=== PATIENT | female | born 1940 | race Caucasian/White ===

== ENCOUNTER 2022-04-12 09:34 | Inpatient (IN) ==
[2022-04-12] MEDS ORDERED: ONDANSETRON 4 MG/2 ML VIAL IV PRN ×2 (09:52→11:47)
[2022-04-12] MEDS: LACTATED RINGERS 1,000 ML IV SCH ×3 (10:15→17:00)
[2022-04-12] MEDS ORDERED: propofoL 200 MG/20 ML VIAL IV ONE ×2 (10:40→12:08)
[2022-04-12] MEDS ORDERED: LIDOCAINE 2% 5 ML VIAL ONE ×2 (10:40→12:08)
[2022-04-12] MEDS ORDERED: ONDANSETRON 4 MG/2 ML VIAL ONE (11:02)
[2022-04-12] MEDS ORDERED: CLINDAMYCIN INJ 600 MG/50 ML PREMIX IV ONE ×2 (11:18→11:30)
[2022-04-12] MEDS ORDERED: ALBUTEROL/IPRATROPIUM 3 ML NEB RESP TX STA (11:29)
[2022-04-12] MEDS ORDERED: ERTAPENEM 1,000 MG in SODIUM CHLORIDE 0.9% 100 ML IV ONE (11:31)
[2022-04-12] MEDS ORDERED: ALBUTEROL/IPRATROPIUM 3 ML NEB RESP TX PRN (11:47)
[2022-04-12] MEDS ORDERED: PROMETHAZINE 25 MG/1 ML VIAL IM PRN (11:47)
[2022-04-12] MEDS ORDERED: HYDROmorphone 1 MG/1 ML SYRINGE IV PRN (11:47)
[2022-04-12] MEDS ORDERED: ACETAMINOPHEN 325 MG TABLET PO PRN (11:47)
[2022-04-12] MEDS ORDERED: SODIUM CHLORIDE 0.9% IV SCH (12:00)
[2022-04-12] MEDS ORDERED: SUCCINYLCHOLINE 200 MG/10 ML VIAL ONE (12:08)
[2022-04-12] MEDS ORDERED: ROCURONIUM 50 MG/5 ML VIAL IV ONE ×3 (12:09→15:17)
[2022-04-12] MEDS ORDERED: MIDAZOLAM 2 MG/2 ML VIAL ONE ×3 (12:11→15:18)
[2022-04-12] MEDS ORDERED: propofoL 200 MG/20 ML VIAL IV PRN (12:40)
[2022-04-12] MEDS ORDERED: ALBUMIN 5% 12.5 GM/250 ML VIAL IV ONE (12:50)
[2022-04-12] MEDS ORDERED: HEPARIN/NACL 0.9% 2 UNITS/ML 1,000 UNIT/500 ML BAG IV ONE (12:50)
[2022-04-12] MEDS ORDERED: LIDOCAINE 2%/EPI 20 ML VIAL ONE (12:55)
[2022-04-12] MEDS ORDERED: BUPIVACAINE MPF 0.25% 10 ML VIAL ONE (12:55)
[2022-04-12] MEDS ORDERED: SODIUM CHLORIDE 0.9% 1,000 ML IV SCH (13:00)
[2022-04-12] MEDS ORDERED: PIPERACILLIN/TAZOBACTAM 3,375 MG in SODIUM CHLORIDE 0.9% 100 ML IV SCH (13:00)
[2022-04-12] MEDS ORDERED: fentaNYL 100 MCG/2 ML VIAL ONE (13:07)
[2022-04-12 13:22] LABS: Basophils % 0.3 % (0.0-0.8); Eosinophils # 0.4 10*3/uL (0.0-0.87); Hematocrit 37.1 VOL% (35.7-47.0); Hemoglobin 11.8 GM/DL (12.0-16.0); Immature Granulocytes % 0.4 %; Immature Granulocytes Absolute 0.03 #; Lymphocytes % 29.8 % (21.3-54.2); Mean Corpuscular HGB Conc 31.8 GM/DL (32-36); Mean Corpuscular Volume 90.5 FL (87-102); Mean Platelet Volume 10.9 FL (9.6-12.0); Monocytes # 0.2 10*3/uL (0.11-0.8); Monocytes % 3.4 % (1.7-12.7); Neutrophils % 60.1 % (38.7-73.9); Platelet Count 318 T/CUMM (130-400); White Blood Count 6.8 T/CUMM (4-12)
[2022-04-12 13:31] LABS: PT Patient Result 11.5 SECS (10.1-12.1)
[2022-04-12 13:37] LABS: Amorphous Crystals,Urine Occasional /HPF (Few); Bilirubin,Urine Negative (Negative); Glucose,Urine (UA) Negative (Negative); Hyaline Casts,Urine 6 /LPF (0-3); Ketones,Urine Negative (Negative); Nitrite,Urine Negative (Negative); Protein,Urine 100 mg/dL (Negative); RBC,Urine 1 /HPF (0-4); Urine Appearance Clear (Clear); Urine Color Yellow (Yellow); Urine Specific Gravity 1.015 (1.001-1.035)
[2022-04-12 13:38] LABS: Blood, Urine Negative (Negative); Urine Urobilinogen 0.2 eU/dL (<2.0)
[2022-04-12] MEDS ORDERED: ePHEDrine 50 MG/ML VIAL ONE (13:38)
[2022-04-12 13:52] LABS: Arterial Base Excess iSTAT -3 MMOL/L (-2.5-2.5); Arterial Bicarbonate iSTAT 22.4 MMOL/L (20-26); Arterial O2 Saturation iSTAT 99 % (95-100); Arterial PCO2 iSTAT 42 MM HG (35-48); Arterial PO2 iSTAT 165 MM HG (80-95); Arterial Total CO2 iSTAT 24 MMO/L (23-27); Arterial pH iSTAT 7.331 (7.35-7.45)
[2022-04-12 13:57] LABS: Albumin 2.6 G/DL (3.4-5.0); Bilirubin,Direct 0.1 MG/DL (0.0-0.20); Bilirubin,Indirect 0.3 MG/DL (0.0-1.0); Bilirubin,Total 0.4 MG/DL (0.20-1.00); Calcium 8.9 MG/DL (8.5-10.1); Osmolality,Calculated 261.8 MOS/KG (273-304); Potassium 3.5 MMOL/L (3.5-5.1); Total Protein 6.6 G/DL (6.4-8.2)
[2022-04-12] MEDS ORDERED: SEVOFLURANE 1 UNIT/15 MINUTE INH ONE ×3 (15:00→15:35)
[2022-04-12] MEDS ORDERED: PHENYLEPHRINE 1 MG/10 ML SYRINGE IV ONE (15:23)
[2022-04-12] MEDS: PIPERACILLIN/TAZOBACTAM 3,375 MG in SODIUM CHLORIDE 0.9% 100 ML IV SCH (17:00)
[2022-04-12] MEDS: CALCIUM (CARBONATE) 500 MG TABLET PO SCH ×2 (18:48→20:13)
[2022-04-12] MEDS: NON-FORMULARY MEDICATION (Magnesium 30 mg Tablet) PO SCH ×2 (18:48→20:13)
[2022-04-12] MEDS: NON-FORMULARY MEDICATION (Zinc 15 mg Tablet) PO SCH ×2 (18:49→20:13)
[2022-04-12] MEDS: METOPROLOL SUCCINATE XL 25 MG TABLET PO SCH (20:13)
[2022-04-12] MEDS: NON-FORMULARY MEDICATION (Azelastine-Fluticasone 137-50 mcg/spray Spray,Non-Aerosol) BOTH NARES SCH (20:13)
[2022-04-13] MEDS: LACTATED RINGERS 1,000 ML IV SCH ×5 (00:41→17:00)
[2022-04-13] MEDS: PIPERACILLIN/TAZOBACTAM 3,375 MG in SODIUM CHLORIDE 0.9% 100 ML IV SCH ×3 (01:58→17:17)
[2022-04-13 03:35] LABS: Basophils % 0.2 % (0.0-0.8); Hemoglobin 10.5 GM/DL (12.0-16.0); Immature Granulocytes % 0.4 %; Immature Granulocytes Absolute 0.05 #; Lymphocytes # 0.8 10*3/uL (1.4-4.0); Lymphocytes % 7.1 % (21.3-54.2); Mean Corpuscular HGB Conc 32.8 GM/DL (32-36); Mean Corpuscular Volume 88.4 FL (87-102); Mean Platelet Volume 10.4 FL (9.6-12.0); Monocytes # 0.7 10*3/uL (0.11-0.8); Monocytes % 5.6 % (1.7-12.7); Neutrophils % 86.7 % (38.7-73.9); Platelet Count 280 T/CUMM (130-400); Red Blood Count 3.62 MC/CUMM (3.8-5.5); Red Cell Distribution Width 13.9 % (9.3-17.3); White Blood Count 11.9 T/CUMM (4-12)
[2022-04-13 03:56] LABS: Albumin 2.3 G/DL (3.4-5.0); Bilirubin,Total 0.4 MG/DL (0.20-1.00); Calcium 8.1 MG/DL (8.5-10.1); Osmolality,Calculated 268.1 MOS/KG (273-304); Potassium 3.8 MMOL/L (3.5-5.1); Total Protein 5.5 G/DL (6.4-8.2)
[2022-04-13 03:59] LABS: Band Neutrophils 9 % (0-10); Hypochromia Slight; Lymphocytes 11 % (20-55); Microcytosis Slight; Platelet Estimate Adequate; Total Cells Counted 100
[2022-04-13 04:54] LABS: Arterial Base Excess iSTAT -2 MMOL/L (-2.5-2.5); Arterial Bicarbonate iSTAT 20.9 MMOL/L (20-26); Arterial O2 Saturation iSTAT 100 % (95-100); Arterial PCO2 iSTAT 30 MM HG (35-48); Arterial PO2 iSTAT 212 MM HG (80-95); Arterial Total CO2 iSTAT 22 MMO/L (23-27); Arterial pH iSTAT 7.457 (7.35-7.45)
[2022-04-13] MEDS: LEVOTHYROXINE 50 MCG TABLET PO SCH (06:19)
[2022-04-13] MEDS ORDERED: MAGNESIUM SULF RIDER 4 GM/100 ML PREMIX IV PRN (08:22)
[2022-04-13] MEDS ORDERED: MAGNESIUM SULF RIDER 2 GM/50 ML PREMIX IV PRN (08:22)
[2022-04-13] MEDS ORDERED: PANTOPRAZOLE 40 MG TABLET PO SCH (09:00)
[2022-04-13] MEDS: NON-FORMULARY MEDICATION (Azelastine-Fluticasone 137-50 mcg/spray Spray,Non-Aerosol) BOTH NARES SCH ×2 (13:49→20:35)
[2022-04-13] MEDS: CALCIUM (CARBONATE) 500 MG TABLET PO SCH ×3 (13:50→20:27)
[2022-04-13] MEDS: METOPROLOL SUCCINATE XL 25 MG TABLET PO SCH ×2 (13:52→20:27)
[2022-04-13] MEDS: NON-FORMULARY MEDICATION (Magnesium 30 mg Tablet) PO SCH (15:24)
[2022-04-13] MEDS: NON-FORMULARY MEDICATION (Zinc 15 mg Tablet) PO SCH (15:24)
[2022-04-14] MEDS: PIPERACILLIN/TAZOBACTAM 3,375 MG in SODIUM CHLORIDE 0.9% 100 ML IV SCH ×3 (00:52→17:34)
[2022-04-14] MEDS: LACTATED RINGERS 1,000 ML IV SCH ×3 (00:53→17:04)
[2022-04-14] MEDS ORDERED: PHENYLEPHRINE DRIP 40 MG/250 ML PREMIX IV PRN (02:10)
[2022-04-14 04:17] LABS: Basophils % 0.2 % (0.0-0.8); Eosinophils # 0.1 10*3/uL (0.0-0.87); Eosinophils % 0.5 % (0.00-10.9); Hemoglobin 8.8 GM/DL (12.0-16.0); Immature Granulocytes % 1.8 %; Immature Granulocytes Absolute 0.34 #; Lymphocytes # 1.1 10*3/uL (1.4-4.0); Lymphocytes % 6.1 % (21.3-54.2); Mean Corpuscular HGB Conc 32.6 GM/DL (32-36); Mean Corpuscular Volume 89.4 FL (87-102); Mean Platelet Volume 10.4 FL (9.6-12.0); Monocytes # 0.9 10*3/uL (0.11-0.8); Neutrophils % 86.4 % (38.7-73.9); Platelet Count 265 T/CUMM (130-400); Red Blood Count 3.02 MC/CUMM (3.8-5.5); Red Cell Distribution Width 14.2 % (9.3-17.3); White Blood Count 18.7 T/CUMM (4-12)
[2022-04-14 04:42] LABS: Alanine Aminotransferase 10 U/L (13-56); Albumin 1.8 G/DL (3.4-5.0); Alkaline Phosphatase 107 U/L (45-117); Aspartate Amino Transferase 20 U/L (0-37); Bilirubin,Total < 0.39 MG/DL (0.20-1.00); Blood Urea Nitrogen 15 MG/DL (7-18); Calcium 8.2 MG/DL (8.5-10.1); Carbon Dioxide 26 MMOL/L (21-32); Chloride 104 MMOL/L (98-107); Glucose 108 MG/DL (74-106); Osmolality,Calculated 269.2 MOS/KG (273-304); Potassium 3.8 MMOL/L (3.5-5.1); Sodium 134 MMOL/L (136-145)
[2022-04-14 04:47] LABS: Lymphocytes 8 % (20-55); Platelet Estimate Normal; Total Cells Counted 100
[2022-04-14 05:28] LABS: Arterial Base Excess iSTAT -1 MMOL/L (-2.5-2.5); Arterial Bicarbonate iSTAT 24.7 MMOL/L (20-26); Arterial O2 Saturation iSTAT 99 % (95-100); Arterial PCO2 iSTAT 44 MM HG (35-48); Arterial PO2 iSTAT 154 MM HG (80-95); Arterial Total CO2 iSTAT 26 MMO/L (23-27); Arterial pH iSTAT 7.362 (7.35-7.45)
[2022-04-14] MEDS: NON-FORMULARY MEDICATION (Azelastine-Fluticasone 137-50 mcg/spray Spray,Non-Aerosol) BOTH NARES SCH (08:12)
[2022-04-14] MEDS: CALCIUM (CARBONATE) 500 MG TABLET PO SCH ×3 (08:12→20:17)
[2022-04-14] MEDS: PANTOPRAZOLE 40 MG VIAL IV SCH (08:12)
[2022-04-14] MEDS: METOPROLOL SUCCINATE XL 25 MG TABLET PO SCH ×2 (08:13→20:17)
[2022-04-14] MEDS ORDERED: INFLUENZA VIRUS VACCINE 0.5 ML SYRINGE IM ONE (14:55)
[2022-04-15] MEDS: NON-FORMULARY MEDICATION (Azelastine-Fluticasone 137-50 mcg/spray Spray,Non-Aerosol) BOTH NARES SCH ×3 (01:13→21:15)
[2022-04-15] MEDS: LACTATED RINGERS 1,000 ML IV SCH (01:14)
[2022-04-15] MEDS: PIPERACILLIN/TAZOBACTAM 3,375 MG in SODIUM CHLORIDE 0.9% 100 ML IV SCH ×2 (01:22→08:15)
[2022-04-15 03:22] LABS: Arterial Base Excess iSTAT 1 MMOL/L (-2.5-2.5); Arterial Bicarbonate iSTAT 25.1 MMOL/L (20-26); Arterial O2 Saturation iSTAT 98 % (95-100); Arterial PCO2 iSTAT 38 MM HG (35-48); Arterial PO2 iSTAT 93 MM HG (80-95); Arterial Total CO2 iSTAT 26 MMO/L (23-27); Arterial pH iSTAT 7.434 (7.35-7.45)
[2022-04-15 04:27] LABS: Basophils % 0.3 % (0.0-0.8); Eosinophils # 0.6 10*3/uL (0.0-0.87); Eosinophils % 4.3 % (0.00-10.9); Hematocrit 27.8 VOL% (35.7-47.0); Hemoglobin 8.9 GM/DL (12.0-16.0); Immature Granulocytes % 1.3 %; Lymphocytes % 6.5 % (21.3-54.2); Mean Corpuscular Volume 90.8 FL (87-102); Mean Platelet Volume 11.3 FL (9.6-12.0); Monocytes # 0.7 10*3/uL (0.11-0.8); Monocytes % 4.5 % (1.7-12.7); Neutrophils % 83.1 % (38.7-73.9); Platelet Count 241 T/CUMM (130-400); Red Blood Count 3.06 MC/CUMM (3.8-5.5); Red Cell Distribution Width 14.3 % (9.3-17.3); White Blood Count 14.8 T/CUMM (4-12)
[2022-04-15 04:45] LABS: Albumin 1.6 G/DL (3.4-5.0); Bilirubin,Total 0.4 MG/DL (0.20-1.00); Calcium 8.4 MG/DL (8.5-10.1); Osmolality,Calculated 271.7 MOS/KG (273-304); Potassium 3.9 MMOL/L (3.5-5.1); Total Protein 4.9 G/DL (6.4-8.2)
[2022-04-15] MEDS: LEVOTHYROXINE 50 MCG TABLET PO SCH (06:01)
[2022-04-15] MEDS: PANTOPRAZOLE 40 MG VIAL IV SCH (08:13)
[2022-04-15] MEDS: METOPROLOL SUCCINATE XL 25 MG TABLET PO SCH ×2 (08:16→21:15)
[2022-04-15] MEDS: CALCIUM (CARBONATE) 500 MG TABLET PO SCH ×3 (08:16→21:15)
[2022-04-15] MEDS: ENOXAPARIN 40 MG/0.4 ML SYRINGE SUBCUT SCH (09:47)
[2022-04-16 05:23] LABS: Basophils # 0.1 10*3/uL (0.0-0.2); Basophils % 0.5 % (0.0-0.8); Eosinophils # 0.8 10*3/uL (0.0-0.87); Eosinophils % 6.9 % (0.00-10.9); Hematocrit 29.7 VOL% (35.7-47.0); Hemoglobin 9.5 GM/DL (12.0-16.0); Immature Granulocytes % 1.2 %; Immature Granulocytes Absolute 0.14 #; Lymphocytes # 1.1 10*3/uL (1.4-4.0); Lymphocytes % 9.7 % (21.3-54.2); Mean Corpuscular Volume 89.5 FL (87-102); Mean Platelet Volume 10.7 FL (9.6-12.0); Monocytes # 0.8 10*3/uL (0.11-0.8); Monocytes % 6.6 % (1.7-12.7); Neutrophils % 75.1 % (38.7-73.9); Platelet Count 279 T/CUMM (130-400); Red Blood Count 3.32 MC/CUMM (3.8-5.5); Red Cell Distribution Width 13.9 % (9.3-17.3); White Blood Count 11.7 T/CUMM (4-12)
[2022-04-16 05:50] LABS: Alanine Aminotransferase 11 U/L (13-56); Albumin 1.6 G/DL (3.4-5.0); Alkaline Phosphatase 109 U/L (45-117); Aspartate Amino Transferase 19 U/L (0-37); Bilirubin,Total < 0.39 MG/DL (0.20-1.00); Blood Urea Nitrogen 10 MG/DL (7-18); Calcium 8.8 MG/DL (8.5-10.1); Carbon Dioxide 27 MMOL/L (21-32); Chloride 106 MMOL/L (98-107); Glucose 88 MG/DL (74-106); Osmolality,Calculated 270.8 MOS/KG (273-304); Potassium 3.9 MMOL/L (3.5-5.1); Sodium 137 MMOL/L (136-145); Total Protein 5.1 G/DL (6.4-8.2)
[2022-04-16] MEDS: PANTOPRAZOLE 40 MG VIAL IV SCH (08:00)
[2022-04-16] MEDS: NON-FORMULARY MEDICATION (Azelastine-Fluticasone 137-50 mcg/spray Spray,Non-Aerosol) BOTH NARES SCH ×2 (08:00→20:33)
[2022-04-16] MEDS: CALCIUM (CARBONATE) 500 MG TABLET PO SCH ×3 (08:02→20:33)
[2022-04-16] MEDS: METOPROLOL SUCCINATE XL 25 MG TABLET PO SCH (08:02)
[2022-04-16] MEDS: ENOXAPARIN 40 MG/0.4 ML SYRINGE SUBCUT SCH (08:57)
[2022-04-16] MEDS: METOPROLOL TARTRATE 25 MG TABLET PO SCH ×3 (09:18→20:33)
[2022-04-16] MEDS: LOSARTAN 50 MG TABLET PO SCH (09:19)
[2022-04-16] MEDS: APIXABAN 5 MG TABLET PO SCH (20:33)
[2022-04-17] MEDS: METOPROLOL TARTRATE 25 MG TABLET PO SCH ×4 (03:09→21:10)
[2022-04-17 06:03] LABS: Basophils # 0.1 10*3/uL (0.0-0.2); Basophils % 0.7 % (0.0-0.8); Eosinophils # 0.6 10*3/uL (0.0-0.87); Eosinophils % 5.6 % (0.00-10.9); Hematocrit 31.5 VOL% (35.7-47.0); Hemoglobin 10.2 GM/DL (12.0-16.0); Immature Granulocytes Absolute 0.21 #; Lymphocytes # 1.7 10*3/uL (1.4-4.0); Lymphocytes % 16.8 % (21.3-54.2); Mean Corpuscular HGB Conc 32.4 GM/DL (32-36); Mean Corpuscular Volume 88.5 FL (87-102); Mean Platelet Volume 10.8 FL (9.6-12.0); Monocytes # 0.9 10*3/uL (0.11-0.8); Monocytes % 8.5 % (1.7-12.7); Neutrophils % 66.4 % (38.7-73.9); Platelet Count 294 T/CUMM (130-400); Red Blood Count 3.56 MC/CUMM (3.8-5.5); Red Cell Distribution Width 13.8 % (9.3-17.3); White Blood Count 10.3 T/CUMM (4-12)
[2022-04-17 06:28] LABS: Albumin 1.6 G/DL (3.4-5.0); Bilirubin,Total 0.4 MG/DL (0.20-1.00); Calcium 8.8 MG/DL (8.5-10.1); Osmolality,Calculated 271.7 MOS/KG (273-304); Potassium 3.6 MMOL/L (3.5-5.1); Total Protein 5.2 G/DL (6.4-8.2)
[2022-04-17] MEDS: LEVOTHYROXINE 50 MCG TABLET PO SCH (06:46)
[2022-04-17] MEDS: PANTOPRAZOLE 40 MG VIAL IV SCH (08:16)
[2022-04-17] MEDS: LOSARTAN 50 MG TABLET PO SCH (08:17)
[2022-04-17] MEDS: CALCIUM (CARBONATE) 500 MG TABLET PO SCH ×3 (08:17→21:11)
[2022-04-17] MEDS: APIXABAN 5 MG TABLET PO SCH ×2 (08:18→21:10)
[2022-04-17] MEDS ORDERED: MAGNESIUM SULF RIDER 2 GM/50 ML PREMIX IV ONE (08:37)
[2022-04-17] MEDS: NON-FORMULARY MEDICATION (Azelastine-Fluticasone 137-50 mcg/spray Spray,Non-Aerosol) BOTH NARES SCH ×2 (08:47→21:18)
[2022-04-18] MEDS: METOPROLOL TARTRATE 25 MG TABLET PO SCH ×2 (03:41→08:22)
[2022-04-18] MEDS: LEVOTHYROXINE 50 MCG TABLET PO SCH (06:42)
[2022-04-18] MEDS: CALCIUM (CARBONATE) 500 MG TABLET PO SCH (08:22)
[2022-04-18] MEDS: APIXABAN 5 MG TABLET PO SCH (08:22)
[2022-04-18] MEDS: LOSARTAN 50 MG TABLET PO SCH (08:22)
[2022-04-18] MEDS: PANTOPRAZOLE 40 MG VIAL IV SCH (08:23)
[2022-04-18] MEDS: NON-FORMULARY MEDICATION (Azelastine-Fluticasone 137-50 mcg/spray Spray,Non-Aerosol) BOTH NARES SCH (08:23)
[2022-04-18 12:33] VITALS: BP 137/67
[2022-04-19] MEDS ORDERED: ERGOCALCIFEROL 50,000 UNIT CAPSULE PO SCH (09:00)
== END 2022-04-18 14:15 | disposition swing bed (61) | DRG 907 ==
LOC: N.GILAB 09:34 → N.ICU 11:31 → N.3E 04-17 17:14
PROVIDERS: ADMIT Internal Medicine Gastroenterology; ATTEND Internal Medicine Gastroenterology